=== PATIENT | female | born 1945 | race Caucasian/White ===

== ENCOUNTER 2023-08-02 13:33 | Inpatient (IN) | payer MEDICARE, SELFPAY ==
--- NOTE | 2023-08-02 14:05 | ED.SOB ---
HPI - SOB/Dyspnea General Chief Complaint: General Medical Stated Complaint: SOB Time Seen by Provider: 08/02/23 17:45 Source: patient Mode of arrival: ambulatory Limitations: no limitations History of Present Illness HPI Narrative: 78-year-old female with no known medical history presents to the emergency department for complaints of fatigue, malaise, shortness of breath and some chest discomfort worsening over the past few months, patient reports chest pain discomfort and shortness of breath worse with ambulation, she reports she walks about 5 miles a day and this has become hard due to the shortness of breath and chest discomfort on exertion. She reports it got so bad she was seen at an urgent care was given antibiotics for a few days and was given an inhaler with little to no relief. Also reports at times when she exerts herself and feels the symptoms she also has near syncopal episodes, where she becomes very lightheaded and feels like she is going to pass out however has never actually passed out. Patient reports she is worried. Denies fevers, chills, nausea, vomiting, abdominal pain, headache, vision changes. Related Data Allergies Allergy/AdvReac Type Severity Reaction Status Date / Time No Known Allergies Allergy Verified 08/02/23 14:06 Review of Systems Review of Systems: Yes all other systems are reviewed and are negative PMFSH Past Medical History Attestation statement: The following information was validated with the patient. Source: old records reviewed and nursing notes reviewed Onset Date is defined in the Problem List Problems that require an onset date and time if occurred within 24 hrs of arrival to the ED Aortic Dissection and Rupture; Neurologic impairment; Cardiopulmonary Arrest; Endotracheal Intubation; Insertion or Replacement of Mechanical Circulatory Assist Device Social History Social History Advance Directives: No Advance Directives Information Provided: No Physical Exam Vital Signs: Vital Signs: Last Vital Signs Temp 97.4 F 08/02/23 14:06 Pulse 52 08/02/23 14:06 Resp 18 08/02/23 14:06 BP 168/68 H 08/02/23 14:06 Pulse Ox 99 08/02/23 14:06 O2 Del Method Room Air 08/02/23 14:06 BMI result Body Mass Index 21.5 vss Appearance: Alert.? Oriented X3.? No acute distress.? Head: Normocephalic, atraumatic, no step-offs or deformities Eyes: Pupils equal, round and reactive to light.? ENT: Pharynx normal.? Neck: Normal inspection.? Neck supple.? CVS: Normal heart rate and rhythm.? Pulses normal.? Respiratory: No respiratory distress.? Breath sounds normal.? Abdomen: Soft and nontender.? Skin: Skin warm and dry.? Normal skin color.? Normal skin turgor.? Extremities: No lower extremity edema.? No calf ttp. 5/5 strength to bilateral upper and lower extremities Neuro: Oriented X 3.? No motor deficit.? No sensory deficit. CN 2-12 intact Course Course Course Narrative: RME: 78 yo w/ no sig PMHx presenting to the ED c/o SOB x few months w/some lightheadedness, worsening. Was previously given Abx and spray w/o relief. Hasn't seen a PCP in 10+ years. EKG, labs, viral testing, CXR ordered Full HPI, ROS and PE to be performed by primary ED provider. Reevaluation(s) Reevaluation #1: CBC unremarkable. Chemistry no acute findings, troponin 48.9, repeat 40.4, EKG nonischemic, BNP 91, D-dimer negative. Chest x-ray unremarkable. Will discuss this with Cardiology to see if patient warrants hospital admission. Time: 19:16 Reevaluation #2: Patient will get aspirin. Discussed this case with Cardiology that recommended a D-dimer which I already did and was negative. ECG nonischemic appearing, cardiology recommends another trop and patient be kept NPO after midnight she will be getting a stress test in the morning as well as hospital admission Time: 19:25 Medical Decision Making Medical Decision Making [facility] Narrative: 1800 78-year-old female presents with shortness of breath and chest discomfort on exertion for the past month worsening over the past few weeks, was recently seen at urgent care given a steroid inhaler and antibiotics with little to no relief. Physical exam benign History and physical exam concerning for viral illness versus unstable angina versus ACS versus PE. Unlikely CHF, pneumonia, acute respiratory distress, dissection Plan labs, imaging, viral test, EKG Differential Diagnosis Differential Diagnoses: The differential diagnosis associated with the presentation includes History and physical exam concerning for viral illness versus unstable angina versus ACS versus PE. Unlikely CHF, pneumonia, acute respiratory distress, dissection Admission/Observation Consideration of admission/observation: Escalation of care including admission/observation considered Lab Data MDM Lab Attestation statement: I reviewed the patient's lab results. 08/02/23 14:49 08/02/23 14:49 Labs: Lab Results 08/02/23 08/02/23 08/02/23 Range/Units 14:48 14:49 18:02 WBC 7.7 (4.8-10.8) X10*3/uL RBC 4.47 (4.20-5.50) X10*6/uL Hgb 13.6 (12.0-16.0) g/dl Hct 40.5 (37.0-47.0) % MCV 90.6 (80.0-98.0) fL MCH 30.4 (27.0-33.0) pg MCHC 33.6 (31.0-35.0) g/dl RDW 12.8 (11.0-16.0) % Plt Count 318 (160-400) X10*3/uL MPV 10.5 (9.4-12.3) fL Immature Gran % (Auto) 0.3 (0.0-0.4) % Neut % (Auto) 73.3 H (45-73) % Lymph % (Auto) 16.6 L (20-40) % [place] % (Auto) 9.0 (2-11) % Eos % (Auto) 0.5 (0-4) % Baso % (Auto) 0.3 (0-2) % Lymph # (Auto) 1.3 (1.2-4.9) X10*3/uL [place] # (Auto) 0.7 (0.1-1.2) X10*3/uL Eos # (Auto) 0.0 (0.0-0.4) X10*3/uL Baso # (Auto) 0.0 (0.0-0.2) X10*3/uL Abs Immat Gran (auto) 0.02 (0.00-0.03) X10*3/uL Absolute Neuts (auto) 5.6 (2.0-8.3) x10*3/uL Absolute Nucleated RBC 0.000 (0.0-0.012) X10*3/uL Nucleated RBC % (auto) 0.0 (0.0-0.2) /100WBC D-Dimer High Sensitivty < 150 NG/ML Sodium 141 (135-145) mmol/L Potassium 3.8 (3.3-5.1) mmol/L Chloride 106 (96-108) mmol/L Carbon Dioxide 27 (22-29) mmol/L Anion Gap 12 (12-20) BUN 13 (9-16) mg/dL Creatinine 0.80 (0.5-1.4) mg/dL Estim Creat Clear Calc 42.9 Estimated GFR > 60 Random Glucose 104 (60-115) mg/dL Calcium 9.4 (8.4-10.2) mg/dL Troponin I High Sens 48.9 H (<3.5-17.0) ng/L B-Natriuretic Peptide 91 (<100) pg/mL Influenza Type A (PCR) NEGATIVE (Negative) Influenza Type B (PCR) NEGATIVE (Negative) RSV RNA Qual (PCR) NEGATIVE (Negative) SARS-CoV-2 RNA (RT-PCR) NEGATIVE (Negative) 08/02/23 Range/Units 18:19 WBC (4.8-10.8) X10*3/uL RBC (4.20-5.50) X10*6/uL Hgb (12.0-16.0) g/dl Hct (37.0-47.0) % MCV (80.0-98.0) fL MCH (27.0-33.0) pg MCHC (31.0-35.0) g/dl RDW (11.0-16.0) % Plt Count (160-400) X10*3/uL MPV (9.4-12.3) fL Immature Gran % (Auto) (0.0-0.4) % Neut % (Auto) (45-73) % Lymph % (Auto) (20-40) % [place] % (Auto) (2-11) % Eos % (Auto) (0-4) % Baso % (Auto) (0-2) % Lymph # (Auto) (1.2-4.9) X10*3/uL [place] # (Auto) (0.1-1.2) X10*3/uL Eos # (Auto) (0.0-0.4) X10*3/uL Baso # (Auto) (0.0-0.2) X10*3/uL Abs Immat Gran (auto) (0.00-0.03) X10*3/uL Absolute Neuts (auto) (2.0-8.3) x10*3/uL Absolute Nucleated RBC (0.0-0.012) X10*3/uL Nucleated RBC % (auto) (0.0-0.2) /100WBC D-Dimer High Sensitivty NG/ML Sodium (135-145) mmol/L Potassium (3.3-5.1) mmol/L Chloride (96-108) mmol/L Carbon Dioxide (22-29) mmol/L Anion Gap (12-20) BUN (9-16) mg/dL Creatinine (0.5-1.4) mg/dL Estim Creat Clear Calc Estimated GFR Random Glucose (60-115) mg/dL Calcium (8.4-10.2) mg/dL Troponin I High Sens 40.4 H (<3.5-17.0) ng/L B-Natriuretic Peptide (<100) pg/mL Influenza Type A (PCR) (Negative) Influenza Type B (PCR) (Negative) RSV RNA Qual (PCR) (Negative) SARS-CoV-2 RNA (RT-PCR) (Negative) Independent Interpretation I performed an independent interpretation of an: EKG (Ventricular rate of 82, MD normal, QRS normal, QT/QTC normal, EKG normal sinus rhythm no ST elevations or inversions concerning for acute ischemia.) and Plain X-Ray (XR/XR chest 2V IMPRESSION: No acute cardiopulmonary disease. ) Radiology Impression Discussion of test interpretation with radiology: I have reviewed the radiologist's reading. Critical Care Time Critical Care Time Critical Care Time: Yes Total Critical Care Time: 40 Attestation: I attest to this time spent taking care of the patient, obtaining history, physical, reviewing labs, imaging, speaking to my attending, speaking to specialist. Discharge Plan Discharge Clinical Impression: Angina pectoris, unstable Patient Disposition: Admitted As Inpatient
[2023-08-02 14:06] VITALS: BP 168/68; PULSE 52; RESP 18; TEMP 36.3; O2SAT 99; BMI 21.5
[2023-08-02 15:15] LABS: Anion Gap 12 (12-20); Blood Urea Nitrogen 13 mg/dL (9-16); Calcium 9.4 mg/dL (8.4-10.2); Carbon Dioxide 27 mmol/L (22-29); Chloride 106 mmol/L (96-108); Creatinine Clr Calc Pharmacy 42.9; Estimated Glomerular Filt Rate > 60; Glucose Random 104 mg/dL (60-115); Potassium 3.8 mmol/L (3.3-5.1); Sodium 141 mmol/L (135-145)
--- NOTE | 2023-08-02 19:33 | PM.IMHP ---
History of Present Illness Date of Service: 08/02/23 Chief Complaint: Chest pain This is a 78-year-old female with no pertinent past medical history and not on prescription medications who presents to the emergency department for evaluation of chest discomfort. Patient states that about 2 months prior to presentation, she had midsternal chest discomfort while she was running. It was associated with lightheadedness and dizziness. It went away with rest. Patient states that in the 1-2 weeks she has been having intermittent chest discomfort, nonradiating that is worse with exertion not go away with rest. Also has occasional lightheadedness with it. No nausea, vomiting, sweating. No history of ACS. Quit smoking tobacco 40 years ago. Has not seen a doctor in more than 10 years and does not know if she has diabetes or hypertension. Does not take any prescription medications. Patient thought she had pneumonia and went to urgent care recently and was given Augmentin and albuterol inhaler. No history of early CAD in family. No pertinent surgical history in the past. No fever, chills, palpitations, abdominal pain, changes in urinary or bowel habits. In the emergency department, patient was found to have elevated troponin. Review of Systems Constitutional: Constitutional: Reports no additional constitutional complaints Cardiovascular: Cardiovascular: Reports chest pain, Reports chest pain at rest and Reports chest pain with activity Respiratory: Respiratory: Reports no additional respiratory complaints Gastrointestinal: Gastrointestinal: Reports no additional gastrointestinal complaints Genitourinary: Genitourinary: Reports no additional female genitourinary complaints [facility] Pertinent family history: No family history of early CAD Social History Alcohol intake: former Meds Allergies Allergy/AdvReac Type Severity Reaction Status Date / Time No Known Allergies Allergy Verified 08/02/23 14:06 Home Medications Medication Instructions Recorded Confirmed Last Taken Type albuterol sulfate 90 mcg/actuation 2 puff inhalation Q6H PRN 08/02/23 08/02/23 Unknown History aerosol inhaler Shortness Of Breath Or Wheezing amoxicillin 875 mg-potassium 1 tab PO BID 08/02/23 08/02/23 08/02/23 09:00 History clavulanate 125 mg tablet Physical Exam Vital Signs and Narrative: Vital Signs: Last Vital Signs Temp 97.4 F 08/02/23 14:06 Pulse 52 08/02/23 14:06 Resp 18 08/02/23 14:06 BP 168/68 H 08/02/23 14:06 Pulse Ox 99 08/02/23 14:06 O2 Del Method Room Air 08/02/23 14:06 BMI result Body Mass Index 21.5 Middle-aged female lying in bed in no distress Neck supple, no JVD Regular rate and rhythm, S1-S2 heard Regular breath sounds bilaterally, no wheezing or crackles appreciated Abdomen soft nontender, no guarding, no rigidity Patient is awake, alert and oriented to self, place, time and person ; no focal motor deficit Psych: Normal mood No pedal edema Results Labs 08/02/23 14:49 08/02/23 14:49 Labs: Laboratory Results - last 24 hr 08/02/23 08/02/23 08/02/23 14:48 14:49 18:02 MCV 90.6 MCH 30.4 MCHC 33.6 RDW 12.8 Plt Count 318 MPV 10.5 Immature Gran % (Auto) 0.3 Neut % (Auto) 73.3 H Lymph % (Auto) 16.6 L Hand % (Auto) 9.0 Eos % (Auto) 0.5 Baso % (Auto) 0.3 Lymph # (Auto) 1.3 Hand # (Auto) 0.7 Eos # (Auto) 0.0 Baso # (Auto) 0.0 Abs Immat Gran (auto) 0.02 Absolute Neuts (auto) 5.6 Absolute Nucleated RBC 0.000 Nucleated RBC % (auto) 0.0 D-Dimer High Sensitivty < 150 Anion Gap 12 Estim Creat Clear Calc 42.9 Estimated GFR > 60 Random Glucose 104 Calcium 9.4 B-Natriuretic Peptide 91 Influenza Type A (PCR) NEGATIVE Influenza Type B (PCR) NEGATIVE RSV RNA Qual (PCR) NEGATIVE SARS-CoV-2 RNA (RT-PCR) NEGATIVE Imaging Radiologist's Impressions: Impressions Chest X-Ray 08/02/23 14:30 IMPRESSION: No acute cardiopulmonary disease. Assessment and Plan (1) Chest pain: Status: Acute (2) Elevated troponin: Status: Acute Plan This is a 78-year-old female with no pertinent past medical history and not on prescription medications who presents to the emergency department for evaluation of chest discomfort. #. Chest discomfort with elevated troponin, concerning for ACS: Will admit patient with cardiac monitoring. Administered aspirin and initiating therapeutic Lovenox. Cardiology was consulted in the ER, who requested admission. Trend troponin. Obtaining echocardiogram. DVT prophylaxis: Lovenox Full code Admit as inpatient and will require two night minimum hospital stay for evaluation and treatment in this patient with possible ACS (as above), which is not possible in a lesser acute setting. Specialist consult pending Quality Stroke Does the patient have a stroke diagnosis?: No VTE Prior VTE?: No VTE Risk Level:: Medical - low VTE Device Contraindication: Treatment Not Indicated VTE Drug Contraindication: N/A - Med Ordered
--- NOTE | 2023-08-02 19:47 | PHA.MEDREC ---
Pharmacy Consult ? Medication Reconciliation Pharmacy has completed the medication reconciliation.
--- NOTE | 2023-08-02 22:35 | PC.NURSE ---
Lab called reporting trop 52.0. Hospitalist notified.
[2023-08-03] VITALS (9 sets, daily range): BP systolic 94–163; BP diastolic 38–97; PULSE 46–94; RESP 16–20; TEMP 36.8–37.9; O2SAT 96–98
--- NOTE | 2023-08-03 00:06 | PC.NURSE ---
Pt up and ambulated to bathroom independently. Offers no complaints or questions @ this time.
--- NOTE | 2023-08-03 07:53 | PC.NURSE ---
patient a&ox3, lungs diminished/clear, cardiac catheterization technologist intact nsr, pt denying pain/discomfort, call de los santos within reach, will continue to monitor
--- NOTE | 2023-08-03 08:47 | MHC.CM.PN ---
CM met with Patient at bedside and addressed IMM with her; original was given to Patient and a copy has been placed on the chart. 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 Home/self care is the goal and CM has initiated and will follow for dc planning. Patient's 2 Sons are the HCPs and the PCP is Dr. Enzo Aviles.
--- NOTE | 2023-08-03 10:40 | PM.CNCAR ---
History of Present Illness History of Present Illness Date of Service: 08/03/23 Requesting physician: Sarabjit Hernandez Chief complaint: Chest Pain, SOB Narrative: 78-year-old female who is here for dyspnea and lightheadedness/palpitations ongoing for 4 months. She said that she was experiencing dyspnea starting March 2023. She said when she was rushing or sprinting she would get shortness of breath and occasionally and odd sensation in the upper chest. Mostly she noticed that her breathing has changed. She also felt lightheaded and dizzy. These episodes have happened since March and she was seen in urgent care and was given antibiotics as well as inhalers. She said after taking inhalers her breathing improved significantly but then she stopped using it and had significant worsening of shortness of breath and she decided come to the emergency department. In the ER her blood pressures were elevated in 160/90. She has not seen her primary care physician for a long time has not had any blood pressure check recently. In any case her high sensitivity troponin levels were mildly abnormal at 50. She did not have any dynamic EKG changes. She was admitted for further assessment. Apparently was started on Lovenox overnight too. Review of Systems ENT: Reports system reviewed and no additional complaints, except as documented PMFSH Social History Social History Alcohol intake: former Patient Tobacco Use Status: Former Tobacco user Smoked in Last 30 Days: No Use of substances other than those prescribed or required for medical reasons: No Advance Directives: No Advance Directives Information Provided: No Nutrition Risks: No Nutritional Risk service: No Meds Allergies Allergy/AdvReac Type Severity Reaction Status Date / Time No Known Allergies Allergy Verified 08/02/23 14:06 Active Medications: Current Medications Acetaminophen (Acetaminophen 325 Mg Tablet) 650 mg PO Q6H PRN PRN Reason: Pain, Mild (Pain Scale 1-3) Amlodipine Besylate (Amlodipine Besylate 5 Mg Tablet) 5 mg PO DAILY AWILDA; Protocol Last Admin: 08/03/23 10:06 Dose: 5 mg Enoxaparin Sodium (Enoxaparin Sodium 60 Mg/0.6 Ml Syringe) 50 mg 1 mg/kg (50 mg) SUBCUT Q12H AWILDA Last Admin: 08/03/23 10:08 Dose: Not Given Melatonin (Melatonin 3 Mg Tablet) 6 mg PO BEDTIME PRN PRN Reason: Insomnia Ondansetron HCl (Ondansetron Hcl 4 Mg/2 Ml Vial) 4 mg IVPUSH Q8H PRN PRN Reason: Nausea and Vomiting Sodium Chloride (0.9 % Sodium Chloride Flush 3 Ml Syringe) 3 ml IVFLUSH QSHIFT [facility] Last Admin: 08/03/23 07:46 Dose: 3 ml Home Medications Medication Instructions Recorded Confirmed Last Taken Type albuterol sulfate 90 mcg/actuation 2 puff inhalation Q6H PRN 08/02/23 08/02/23 Unknown History aerosol inhaler Shortness Of Breath Or Wheezing amoxicillin 875 mg-potassium 1 tab PO BID 08/02/23 08/02/23 08/02/23 09:00 History clavulanate 125 mg tablet Physical Exam Vital Signs: Vital Signs: Last Vital Signs Temp 98.9 F 08/03/23 08:01 Pulse 46 L 08/03/23 08:01 Resp 16 08/03/23 08:01 BP 163/91 H 08/03/23 08:01 Pulse Ox 98 08/03/23 08:01 O2 Del Method Room Air 08/03/23 08:01 BMI result Body Mass Index 21.5 GENERAL APPEARANCE: in no acute distress, pleasant. NECK: no carotid bruit, no jugular venous distention. SKIN: no suspicious lesions, warm and dry. HEART: no murmurs, regular rate and rhythm. LUNGS: clear to auscultation bilaterally. ABDOMEN: soft, nontender. EXTREMITIES: no edema. PERIPHERAL PULSES: equal. NEUROLOGIC: No gross deficits, AAO X 3 Objective Labs and Meds 08/03/23 05:36 08/03/23 05:36 Lab results: Laboratory Results - last 24 hr 08/02/23 08/02/23 08/02/23 14:48 14:49 18:02 WBC 7.7 RBC 4.47 Hgb 13.6 Hct 40.5 MCV 90.6 MCH 30.4 MCHC 33.6 RDW 12.8 Plt Count 318 MPV 10.5 Immature Gran % (Auto) 0.3 Neut % (Auto) 73.3 H Lymph % (Auto) 16.6 L Curry % (Auto) 9.0 Eos % (Auto) 0.5 Baso % (Auto) 0.3 Lymph # (Auto) 1.3 Curry # (Auto) 0.7 Eos # (Auto) 0.0 Baso # (Auto) 0.0 Abs Immat Gran (auto) 0.02 Absolute Neuts (auto) 5.6 Absolute Nucleated RBC 0.000 Nucleated RBC % (auto) 0.0 D-Dimer High Sensitivty < 150 Sodium 141 Potassium 3.8 Chloride 106 Carbon Dioxide 27 Anion Gap 12 BUN 13 Creatinine 0.80 Estim Creat Clear Calc 42.9 Estimated GFR > 60 Random Glucose 104 Estimat Average Glucose 117 Hemoglobin A1c % 5.7 Calcium 9.4 Troponin I High Sens 48.9 H B-Natriuretic Peptide 91 Influenza Type A (PCR) NEGATIVE Influenza Type B (PCR) NEGATIVE RSV RNA Qual (PCR) NEGATIVE SARS-CoV-2 RNA (RT-PCR) NEGATIVE 08/02/23 08/02/23 08/03/23 18:19 21:47 05:36 WBC 7.0 RBC 4.06 L Hgb 12.3 Hct 35.6 L MCV 87.7 MCH 30.3 MCHC 34.6 RDW 12.8 Plt Count 291 MPV 10.8 Immature Gran % (Auto) Neut % (Auto) Lymph % (Auto) Curry % (Auto) Eos % (Auto) Baso % (Auto) Lymph # (Auto) [place] # (Auto) Eos # (Auto) Baso # (Auto) Abs Immat Gran (auto) Absolute Neuts (auto) Absolute Nucleated RBC 0.000 Nucleated RBC % (auto) 0.0 D-Dimer High Sensitivty Sodium 140 Potassium 3.6 Chloride 107 Carbon Dioxide 23 Anion Gap 14 BUN 12 Creatinine 0.71 Estim Creat Clear Calc 48.4 Estimated GFR > 60 Random Glucose 97 Estimat Average Glucose Hemoglobin A1c % Calcium 9.0 Troponin I High Sens 40.4 H 52.0 H* B-Natriuretic Peptide Influenza Type A (PCR) Influenza Type B (PCR) RSV RNA Qual (PCR) SARS-CoV-2 RNA (RT-PCR) 08/03/23 08:36 WBC RBC Hgb Hct MCV MCH MCHC RDW Plt Count MPV Immature Gran % (Auto) Neut % (Auto) Lymph % (Auto) Curry % (Auto) Eos % (Auto) Baso % (Auto) Lymph # (Auto) Curry # (Auto) Eos # (Auto) Baso # (Auto) Abs Immat Gran (auto) Absolute Neuts (auto) Absolute Nucleated RBC Nucleated RBC % (auto) D-Dimer High Sensitivty Sodium Potassium Chloride Carbon Dioxide Anion Gap BUN Creatinine Estim Creat Clear Calc Estimated GFR Random Glucose Estimat Average Glucose Hemoglobin A1c % Calcium Troponin I High Sens 55.8 H* B-Natriuretic Peptide Influenza Type A (PCR) Influenza Type B (PCR) RSV RNA Qual (PCR) SARS-CoV-2 RNA (RT-PCR) Imaging Radiologist's impression: Impressions Chest X-Ray 08/02/23 14:30 IMPRESSION: No acute cardiopulmonary disease. Assessment and Plan (1) Chest pain: Status: Acute (2) Essential hypertension: Status: Acute (3) Dyspnea on exertion: Status: Acute Plan Pleasant 78-year-old female presenting with dyspnea and off and on chest discomfort since March 2023. She is hypertensive and has not been on any medications past. We have reviewed her echocardiogram which is showing normal LV function without any wall motion abnormalities. She does have atrial septal aneurysm and potentially a PFO but it is incidental finding. She has been started on baby aspirin which should be continued. Add amlodipine 5 mg once a day. She has no wall motion abnormality on the echocardiogram and this presentation can be due to elevated blood pressures too. She has very very mildly abnormal troponin levels. She also improved with inhalers in the past and had background of smoking many years ago and had not had any lung testing recently. I think we should do an exercise stress test on her. If this is abnormal then would consider transferring her to [facility] and do coronary angiography. Thank you for allowing me to participate in the care of your patient. Please feel free to contact me if you have any questions. Procedures Date of Service Date of Service: 08/03/23
--- NOTE | 2023-08-03 12:30 | PC.NURSE ---
Resumed care of patient, she is currently off the unit getting her stress test done.
--- NOTE | 2023-08-03 14:58 | HO.PM.IMPN ---
Subjective Subjective Date of Service: 08/03/23 Interval History: seen and examined this morning seen by cardiology - had stress test plan for overnight telemetry monitoring this afternoon pt had episode of syncope after walking back from the bathroom, blood pressure dipped at time of event and then improved. re-eval after event, patient awake, alert and asymptomatic Review of Systems Review of Systems: Yes all other systems are reviewed and are negative Constitutional Constitutional: Denies fever(s) Cardiovascular Cardiovascular: Denies chest pain, Denies palpitations and Denies dyspnea Respiratory Respiratory: Denies dyspnea Endocrine Endocrine: Denies palpitations Physical Exam Vital Signs: Vital Signs: Last Vital Signs Temp 98.9 F 08/03/23 08:01 Pulse 94 08/03/23 13:51 Resp 20 08/03/23 13:51 BP 149/89 H 08/03/23 13:51 Pulse Ox 98 08/03/23 08:01 O2 Del Method Room Air 08/03/23 08:01 BMI result Body Mass Index 21.5 Const: General: cooperative, comfortable, no acute distress, alert and awake Nutritional Appearance: average body habitus Orientation/consciousness: patient oriented x3 Resp: Effort & Inspection: normal respiratory effort, able to speak in complete sentences, no respiratory distress and no use of accessory muscles Cardio: Rate: regular rate GI: Inspection: No distended Palpation (GI): Soft to palpation and nontender Neuro: General: patient oriented x3, moves all extremities and CN's II-XI intact bilaterally Objective Data Active Medications Acetaminophen (Acetaminophen 325 Mg Tablet) 650 mg PO Q6H PRN PRN Reason: Pain, Mild (Pain Scale 1-3) Amlodipine Besylate (Amlodipine Besylate 5 Mg Tablet) 5 mg PO DAILY [facility]; Protocol Last Admin: 08/03/23 10:06 Dose: 5 mg Documented By: GENARO Carvedilol (Carvedilol 3.125 Mg Tablet) 3.125 mg PO BID [facility]; Protocol Last Admin: 08/03/23 13:51 Dose: 3.125 mg Documented By: DILLON Melatonin (Melatonin 3 Mg Tablet) 6 mg PO BEDTIME PRN PRN Reason: Insomnia Ondansetron HCl (Ondansetron Hcl 4 Mg/2 Ml Vial) 4 mg IVPUSH Q8H PRN PRN Reason: Nausea and Vomiting Sodium Chloride (0.9 % Sodium Chloride Flush 3 Ml Syringe) 3 ml IVFLUSH QSHIFT [facility] Last Admin: 08/03/23 07:46 Dose: 3 ml Documented By: AUSTIN Labs 08/03/23 05:36 08/03/23 05:36 Labs: Laboratory Results - last 24 hr 08/02/23 08/02/23 08/02/23 14:48 14:49 18:02 MCV 90.6 MCH 30.4 MCHC 33.6 RDW 12.8 Plt Count 318 MPV 10.5 Immature Gran % (Auto) 0.3 Neut % (Auto) 73.3 H Lymph % (Auto) 16.6 L Ada % (Auto) 9.0 Eos % (Auto) 0.5 Baso % (Auto) 0.3 Lymph # (Auto) 1.3 Ada # (Auto) 0.7 Eos # (Auto) 0.0 Baso # (Auto) 0.0 Abs Immat Gran (auto) 0.02 Absolute Neuts (auto) 5.6 Absolute Nucleated RBC 0.000 Nucleated RBC % (auto) 0.0 D-Dimer High Sensitivty < 150 Anion Gap 12 Estim Creat Clear Calc 42.9 Estimated GFR > 60 Random Glucose 104 Estimat Average Glucose 117 Hemoglobin A1c % 5.7 Calcium 9.4 B-Natriuretic Peptide 91 Influenza Type A (PCR) NEGATIVE Influenza Type B (PCR) NEGATIVE RSV RNA Qual (PCR) NEGATIVE SARS-CoV-2 RNA (RT-PCR) NEGATIVE 08/03/23 05:36 MCV 87.7 MCH 30.3 MCHC 34.6 RDW 12.8 Plt Count 291 MPV 10.8 Immature Gran % (Auto) Neut % (Auto) Lymph % (Auto) Ada % (Auto) Eos % (Auto) Baso % (Auto) Lymph # (Auto) Ada # (Auto) Eos # (Auto) Baso # (Auto) Abs Immat Gran (auto) Absolute Neuts (auto) Absolute Nucleated RBC 0.000 Nucleated RBC % (auto) 0.0 D-Dimer High Sensitivty Anion Gap 14 Estim Creat Clear Calc 48.4 Estimated GFR > 60 Random Glucose 97 Estimat Average Glucose Hemoglobin A1c % Calcium 9.0 B-Natriuretic Peptide Influenza Type A (PCR) Influenza Type B (PCR) RSV RNA Qual (PCR) SARS-CoV-2 RNA (RT-PCR) Assessment and Plan (1) Dyspnea on exertion: Status: Acute (2) Elevated troponin: Status: Acute Plan This is a 78-year-old female with no pertinent past medical history and not on prescription medications who presents to the emergency department for evaluation of chest discomfort. Chest discomfort with elevated troponin initially started on therapeutic lovenox. seen by cardiology, underwent exercise stress test which was unremarkable, lovenox stopped echocardiogram with no WMA. trops have remained flat overnight cardiac monitoring HTN no previous diagnosis, not on meds at baseline started on norvasc and coreg will hold norvasc for now follow bp closely syncope likely vasovagal orthostatics negative. ddimer negative monitor on tele DVT prophylaxis: mechanical devices Full code attending - dr. retana requires ongoing inpatient stay for close cardiac monitoring given chest pain, elevated trops and syncopal event Quality Stroke Does the patient have a stroke diagnosis?: No VTE Prior VTE?: No VTE Risk Level:: Medical - low VTE Device Contraindication: Treatment Not Indicated VTE Drug Contraindication: N/A - Med Ordered
--- NOTE | 2023-08-03 15:02 | PC.NURSE ---
Pt walked to bathroom, upon walking back pt started to report not feeling well, got white as a ghost, and passed out cold, witnessed by staff. Pt out back in bed, BP initially 93/46, pt laying in bed currently symptoms have resolved HR 76, BP 143/76 Zuleima Hernandez at bedside currently. Diet order placed.
[2023-08-04] VITALS: TEMP 38.3
[2023-08-04 00:13] VITALS: BP 115/62; PULSE 82; RESP 18; TEMP 38.3; O2SAT 97
[2023-08-04 03:51] VITALS: BP 145/71; PULSE 78; RESP 18; TEMP 37.5; O2SAT 97
[2023-08-04 07:23] VITALS: BP 136/78; PULSE 80; RESP 18; TEMP 36.6; O2SAT 98
--- NOTE | 2023-08-04 09:23 | MHC.CM.PN ---
Addendum entered by Oksana Echevarria RN 08/04/23 13:22: PT INSISTING ON DC, DC ORDER IN AND PT WILL DC HOME SELF CARE W/FAMILY FOR TRANSPORT Original Note: EMR REVIEWED, PER CARDIOLOGY PLAN FOR EXERCISE STRESS TEST, IF NORMAL ANTIC DC HOME AND IF ABNORMAL [place] [facility] [place] WILL CONT TO FOLLOW.
[2023-08-04 10:59] VITALS: BP 128/68; PULSE 79; RESP 20; TEMP 36.3; O2SAT 98
--- NOTE | 2023-08-04 11:02 | PM.PNCARD ---
Subjective Subjective Date of Service: 08/04/23 Interval history: Seen examined at bedside. She had a vasovagal event yesterday. Clinically stable now. Blood pressure currently okay and she is on carvedilol 3.125 mg twice a day. Physical Exam Vital Signs: Last Vital Signs Temp 97.3 F 08/04/23 10:59 Pulse 79 08/04/23 10:59 Resp 20 08/04/23 10:59 BP 128/68 08/04/23 10:59 Pulse Ox 98 08/04/23 10:59 O2 Del Method Room Air 08/04/23 10:59 BMI result Body Mass Index 21.5 GENERAL APPEARANCE: in no acute distress, pleasant. NECK: no carotid bruit, no jugular venous distention. SKIN: no suspicious lesions, warm and dry. HEART: no murmurs, regular rate and rhythm. LUNGS: clear to auscultation bilaterally. ABDOMEN: soft, nontender. EXTREMITIES: no edema. PERIPHERAL PULSES: equal. NEUROLOGIC: No gross deficits, AAO X 3 Objective Labs and Meds 08/03/23 05:36 08/03/23 05:36 Progress Note: A&P Assessment and plan (1) Dyspnea on exertion: Status: Acute (2) Essential hypertension: Status: Acute (3) Frequent PVCs: Status: Acute Plan Pleasant 78 year female presenting for dyspnea on exertion. She underwent stress testing yesterday which was okay. Blood pressure was elevated and she was given amlodipine and carvedilol. Later she had a vasovagal event. Clinically stable at this point. Blood pressure improved with carvedilol 3.125 mg twice a day. We will arrange PFTs for her. She will follow-up with us in the office in 1-2 months. Thank you for allowing me to participate in the care of your patient. Please feel free to contact me if you have any questions. Time Spent With Patient Time: Total time managing care of this patient today ____ minutes. Progress Note: Quality Stroke Does the patient have a stroke diagnosis?: No Procedures Date of Service Date of Service: 08/04/23
--- NOTE | 2023-08-04 13:15 | PM.DS ---
DS: Providers Provider Date of Service: 08/04/23 Date of admission: 08/02/23 19:32 Date of discharge: 08/04/23 Primary care physician: Enzo Aviles MD Consults: 08/02/23 19:31 Consult to Cardiology Routine Consulting Provider: [facility] [place] [facility] Reason for consultation: Chest pain Has provider been notified: Yes Attending physician on discharge: Mark Downing Discharging clinician: Zuleima Hernandez DS: Diagnosis Discharge Diagnosis (1) Dyspnea on exertion: Status: Acute (2) Essential hypertension: Status: Acute (3) Frequent PVCs: Status: Acute (4) Sinusitis: Status: Acute DS: Summary Hospital Course Hospital Course: From H&P on the day of admission This is a 78-year-old female with no pertinent past medical history and not on prescription medications who presents to the emergency department for evaluation of chest discomfort. Patient states that about 2 months prior to presentation, she had midsternal chest discomfort while she was running. It was associated with lightheadedness and dizziness. It went away with rest. Patient states that in the 1-2 weeks she has been having intermittent chest discomfort, nonradiating that is worse with exertion not go away with rest. Also has occasional lightheadedness with it. No nausea, vomiting, sweating. No history of ACS. Quit smoking tobacco 40 years ago. Has not seen a doctor in more than 10 years and does not know if she has diabetes or hypertension. Does not take any prescription medications. Patient thought she had pneumonia and went to urgent care recently and was given Augmentin and albuterol inhaler. No history of early CAD in family. No pertinent surgical history in the past. No fever, chills, palpitations, abdominal pain, changes in urinary or bowel habits. In the emergency department, patient was found to have elevated troponin. Chest discomfort/BISHOP with elevated troponin initially started on therapeutic lovenox. seen by cardiology, underwent exercise stress test which was unremarkable, lovenox stopped. echocardiogram with no WMA. trops have remained flat. BNP low. CXR negative. RPP negative. overnight cardiac monitoring with PVCs. started on coreg. cardiology recommends outpatient follow up and outpatient PFTs. HTN no previous diagnosis, not on meds at baseline. was started on coreg. blood pressure under better control syncope. likely vasovagal. orthostatics negative. ddimer negative. no further events acute bacterial sinusitis. Patient has been having sinus pressure and pain, purulent nasal discharge for the last several weeks and overnight had fever of 100.9. Blood cultures were drawn, but the patient prefers to be discharged today. she understands the risks but prefers to be called if her blood cultures returned positive. will discharge with a course of augmentin. she is encouraged to schedule a follow up appointment with her PC Time Attestation Discharge coordination time: Greater than 30 minutes Quality: Safe Use of Opioids Does Pt have an Active Cancer Diagnosis on the Problem List?: No Quality: Stroke Does the patient have a stroke diagnosis?: No Physical Exam Vital Signs: Vital Signs: Last Vital Signs Temp 97.3 F 08/04/23 10:59 Pulse 79 08/04/23 10:59 Resp 20 08/04/23 10:59 BP 128/68 08/04/23 10:59 Pulse Ox 98 08/04/23 10:59 O2 Del Method Room Air 08/04/23 10:59 BMI result Body Mass Index 21.5 Const: General: cooperative, comfortable, no acute distress, alert and awake Nutritional Appearance: average body habitus Orientation/consciousness: patient oriented x3 Resp: Effort & Inspection: normal respiratory effort, able to speak in complete sentences, no respiratory distress and no use of accessory muscles Cardio: Rate: regular rate GI: Inspection: No distended Palpation (GI): Soft to palpation and nontender Neuro: General: patient oriented x3, moves all extremities and CN's II-XI intact bilaterally DS: Data Data Completed and Pending Labs on day of discharge: Laboratory Results - last 24 hr 08/04/23 10:40 Respiratory Panel Benavides See Note Adenovirus (Rapid PCR) Not Detected B.pert (TEM-PCR) Not Detected B.parapertussis DNA PCR Not Detected C. pneumoniae DNA (PCR) Not Detected Coronavirus OC43 (PCR) Not Detected Coronavirus HKU1 (PCR) Not Detected Coronavirus 229E (PCR) Not Detected Coronavirus NL63 (PCR) Not Detected Human Metapneumovir PCR Not Detected Influenza A (RT-PCR) Not Detected Influenza B (RT-PCR) Not Detected M. pneumoniae (PCR) Not Detected Parainfluenza 1 (PCR) Not Detected Parainfluenza 2 (PCR) Not Detected Parainfluenza 3 (PCR) Not Detected Parainfluenza 4 (PCR) Not Detected RSV (PCR) Not Detected Entero/Rhino (PCR) Not Detected SARS-CoV-2 RNA (RT-PCR) Not Detected Discharge Plan Discharge Anticipated Discharge Date/Time: 08/04/23 13:13 Patient Disposition: Home, Self-Care Discharge Diagnosis: sinusitis dyspnea HTN Referrals: Jason Castillo MD [Physician] - 1 Month Enzo Aviles MD [Primary Care Provider] - 1 Week Discharge Medications: New carvedilol 3.125 mg Tablet 3.125 mg PO BID 30 Days Qty: 60 1RF Protocol: Hold for SBP/HR < HOLD for SBP < : 90 HOLD for HR < : 60 Continued albuterol sulfate 90 mcg/actuation HFA aerosol inhaler 2 puff inhalation Q6H PRN (Reason: Shortness Of Breath Or Wheezing) amoxicillin-pot clavulanate 875-125 mg tablet 1 tab PO BID 7 Days Qty: 14 0RF Rx Instructions: END DATE: 08/03/23 Discharge Orders: Discharge Order (Routine); Ordered 08/04/23 Ordered By: Zuleima Hernandez Activity on Discharge: As tolerated Stand Alone Forms: Patient Portal Discharge page Care Plan Goals: see below Health Concerns: elevated blood pressure syncope chest pain shortness of breath fever sinusitis Plan of Treatment: recommend to continue taking coreg as prescribed complete course of antibiotics as prescribed, take entire course as discussed call to schedule 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
== END 2023-08-04 14:25 | disposition home or self-care (01) | DRG 153 ==
LOC: HO.ED 19:26 → HO.EDOVER 19:41 → HO.IMC 08-03 14:33
PROVIDERS: Physician Assistant; Admitting Provider Student in an Organized Health Care Education/Training Program; Emergency Provider Emergency Medicine Emergency Medical Services; PCP Internal Medicine; Visit Provider Physician Assistant Medical
DX: J01.90 Acute sinusitis, unspecified (principal); I49.3 Ventricular premature depolarization; I10 Essential (primary) hypertension; R55 Syncope and collapse; B96.89 Other specified bacterial agents as the cause of diseases classified elsewhere; Z20.822 Contact with and (suspected) exposure to COVID-19; Z87.891 Personal history of nicotine dependence; Z79.899 Other long term (current) drug therapy
CPT/HCPCS: 0241U; 36415; 71046; 80048; 83036; 83880; 84484; 85025; 85027; 85379; 87040; 87633; 93005; 93306; 93350; 99285; J1650; Q9957

== ENCOUNTER → 2023-08-02 14:09 | Outpatient (BNV) | payer MEDICARE, SELFPAY | PROVIDERS: Admitting Provider Student in an Organized Health Care Education/Training Program; Emergency Provider Emergency Medicine Emergency Medical Services; PCP Internal Medicine; Visit Provider Internal Medicine Cardiovascular Disease | DX: R06.02 Shortness of breath (principal) | CPT/HCPCS: 93010 ==

== ENCOUNTER 2023-08-02 19:32 | Outpatient (BNV) | payer MEDICARE, SELFPAY | END 2023-08-03 07:00 | PROVIDERS: Admitting Provider Student in an Organized Health Care Education/Training Program; Emergency Provider Emergency Medicine Emergency Medical Services; PCP Internal Medicine; Visit Provider Internal Medicine Cardiovascular Disease | DX: R06.02 Shortness of breath (principal) | CPT/HCPCS: 93016; 93018; 93306; 93350; 93352 ==

== ENCOUNTER → 2023-08-02 19:32 | Outpatient (BNV) | payer MEDICARE, SELFPAY | PROVIDERS: Admitting Provider Student in an Organized Health Care Education/Training Program; Emergency Provider Emergency Medicine Emergency Medical Services; PCP Internal Medicine; Visit Provider Student in an Organized Health Care Education/Training Program | DX: R06.09 Other forms of dyspnea (principal); I10 Essential (primary) hypertension; I49.3 Ventricular premature depolarization; J32.9 Chronic sinusitis, unspecified | CPT/HCPCS: 99222; 99232; 99239 ==

== ENCOUNTER → 2023-08-02 19:32 | Outpatient (BNV) | payer MEDICARE, SELFPAY | PROVIDERS: Admitting Provider Student in an Organized Health Care Education/Training Program; Emergency Provider Emergency Medicine Emergency Medical Services; PCP Internal Medicine; Visit Provider Internal Medicine Cardiovascular Disease | DX: R07.9 Chest pain, unspecified (principal); I10 Essential (primary) hypertension; R06.09 Other forms of dyspnea | CPT/HCPCS: 99223; 99232 ==

== ENCOUNTER 2025-05-17 09:09 | Outpatient (AMB) | payer MEDICARE, SELFPAY ==
--- NOTE | 2025-05-17 09:10 | AM.OFFWIN_ITS ---
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 sinus infection: sinus pressure and lightheadedness x1week Patient Tobacco Use Status: Former Tobacco user Allergies No Known Allergies Allergy (Verified 05/17/25 09:16) HPI HPI Comments History of Present Illness Details This is a 80-year-old female who presented to the walk-in clinic complaining of viral URI symptoms such as nasal/sinus congestion, rhinorrhea, sore/itchy throat, and dry cough x1 week. She states her nasal discharge/drainage is clear and denies any purulent nasal discharge or drainage. She reports postnasal drip, which is causing a sore and itchy throat. She reports a dry cough and states that she has not been coughing up any sputum. She reports some subjective low-grade fevers and chills about 1 week ago; however, has not felt fevers or chills since then. She also reports some general fatigue and malaise as well as decreased appetite. 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 She states that her symptoms have been persistent but are not worsening or improving. [facility], [facility] Social History Household Members: None Housing: House Do you presently have visiting nurse or other home services: No Alcohol intake: former Comment: Pt refusing high fall precautions Patient Tobacco Use Status: Former Tobacco user Advance Directives Date on File: 08/03/23 service: No Review of Systems Const All systems reviewed & are unremarkable except as noted in HPI and below Reports no additional complaints Eyes Reports no additional complaints ENT Reports no additional complaints Card Reports no additional complaints Resp Reports no additional complaints GI Reports no additional complaints Reports no additional complaints Musc Reports no additional complaints Skin/Breast Reports system reviewed and no additional complaints, except as documented Neuro Reports no additional complaints Psych Reports no additional complaints Endo Reports no additional complaints Benson/Lymph Reports no additional complaints Aller/Immun Reports no additional complaints Physical Exam Exam Exam: Vital signs reviewed. Constitutional: Non-toxic appearing. No acute distress. Well-developed and well-nourished. HEENT: Normocephalic and atraumatic. Tympanic membranes without erythema, edema, or bulging bilaterally. External auditory canals without erythema or edema bilaterally. Moist mucous membranes. + Post-nasal drip but no posterior pharyngeal erythema or exudates. Skin: Warm and dry. No rashes or lesions noted. Neck: Full and painless range of motion. No cervical lymphadenopathy. Cardio: Irregular and slightly bradycardic. No murmurs, gallops, or rubs. No lower extremity edema. No JVD. Pulmonary: No respiratory distress. No accessory muscle usage. Clear to auscultation bilaterally without wheezing, crackles, or rhonchi. Gastrointestinal: Soft, nontender, and nondistended in all 4 quadrants. Normoactive bowel sounds in all 4 quadrants. Musculoskeletal: Normal range of motion in joints throughout the body. No deformity or other signs of injury. Neuro: Alert and oriented x4. Cranial nerves 2-12 grossly intact. No focal deficits appreciated. Psych: Normal mood and affect. Vital Signs: Last Vital Signs Pulse 58 05/17/25 09:12 Resp 16 05/17/25 09:12 BP 142/80 H 05/17/25 09:12 Pulse Ox 93 05/17/25 09:12 Oxygen Delivery Method Room Air 05/17/25 09:12 BMI result Body Mass Index 22.3 Assessment & Plan Assessment & Plan (1) Acute upper respiratory infection, unspecified: Code(s): J06.9 - Acute upper respiratory infection, unspecified Plan: This is a 80-year-old female who presented to the walk-in clinic complaining of viral URI symptoms such as nasal/sinus congestion, rhinorrhea, sore/itchy throat, and dry cough x1 week. History and physical most consistent with acute viral upper respiratory tract infection; no double worsening, fevers/chills, or purulent nasal discharge to suggest bacterial rhinosinusitis at this time. I recommended symptomatic management including rest, increased fluids, advil/tylenol for pain/fever, nasal saline spray, humidification at nighttime, and over the counter throat lozenges/decongestants. Patient advised to follow up here or go to the emergency room for worsening/persistent symptoms. Patient verbalized understanding and is agreeable with the plan. (2) Irregular heart rate: Code(s): I49.9 - Cardiac arrhythmia, unspecified Plan: On physical examination, patient was noted to have an irregular heart rhythm. Patient states she had issues with an irregular heart rhythm in July of 2023; per chart review, she was admitted to [facility] with lightheadedness, dyspnea on exertion, and elevated troponins and she underwent stress test and echo at that time, which were negative. Patient states she does have some lightheadedness but otherwise denies any chest pain, shortness of breath, or palpitations. An EKG was obtained, which showed sinus rhythm with frequent PVCs. This was compared to EKG from 07/2023, which was normal sinus rhythm at that time. I recommended the patient proceed to the emergency room given lightheadedness with associated EKG changes and irregular rhythm; however, patient declined at this time as she is too busy. In my medical opinion, patient has the capacity to make medical decisions for herself as she is alert and oriented x4 and understands the risks. Patient signed AMA paperwork. I recommended patient proceed directly to the emergency room and have a low threshold to proceed to the emergency room if she were to develop worsening lightheadedness, chest pain, shortness breath, or palpitations. Patient verbalized understanding and she is in agreement with the plan. Medications: Discontinued carvedilol Discontinued Reason: Patient no longer taking 3.125 mg See Protocol PO BID 30 days 60 tabs 1RF amoxicillin-pot clavulanate 875-125 mg END DATE: 08/03/23 Discontinued Reason: Patient Completed Course 1 tab PO BID 7 days 14 tabs 0RF Coding Level of Care Code Est Pt Level 4 (64770) Diagnoses Acute upper respiratory infection, unspecified J06.9 Irregular heart rate I49.9
--- OUTSIDE RECORDS SUMMARY | 2025-05-17 09:11 | XMS_ITS | Data Portability ---
Author Organization SHARONDA Gabriel Venyotoño s, [address] Address [address] [place] [address] Assessment Encounter Date Assessment Date Assessment LastModified by Organization Details LastModified Time 12/22/2023 12/22/2023 Greater than 50% of the 50 minutes spent with pt was spent in counseling and coordination Not available 12/22/2023 15:40:54 Plan of Treatment Reminders Order Date Submit Date Provider Last Modified By Organization Details Last Modified Time Details Appointments None recorded. Lab CBC w/ auto diff 2023 024 [facility] [address] [place], [address], 4 06:08:17 CMP, serum or plasma [facility]23 [facility] [address] [place], [address], 4 08:37:22 borrelia burgdorferi IgG + IgM + total panel, IA, serum 2023 024 [facility] [address] [place], [address], 4 14:08:04 ESR (erythrocyt e sedimentati on rate), blood 2023 024 [facility] [address] [place], [address], 4 06:08:18 C-reactive protein, quantitativ e, serum or plasma 2023 024 [email or web address] [facility]), [address], [place], [address], 08:37:23 Referral None recorded. Procedures None recorded. Surgeries None recorded. Imaging XR, knee, 3 view - b/l knee pain for several months, worsening, no injury, suspect OA, please include b/l weight bearing AP 2023 024 [facility], All Locations, [place], [address], 10:54:35 Medication Orders None recorded. Patient TargetsNo targets recorded. Patient Instructions Encounter Date Encounter Id Patient Instructions Last Modified By Organization Details Last Modified Time 12/22/2023 [id number] lightheadedness or faintness: care instructions Not available 12/22/2023 15:27:14 You were seen fo r multiple symptoms, including swollen knees, dizziness, and night sweats. Because of this, we are looking at multiple sets of blood work. Because you did have a bullseye after a tick that wasn't treated, we will check for lyme. We are also going to look at inflammatory markers to look for other causes of these symptoms. Not available 12/22/2023 15:27:43 Reason for Referral None Reported. Results Created Date Observation Date Name Description Value Unit Range Abnormal Flag Note LastModifiedBy Organization Detail LastModifiedTime 12/22/1912/23/2023 CBC WITH DIFFE RENTI AL/PL ATELE T WBC 7.7 x10e3 /uL 3.4-10 .8 Not Available [facility] ([facility]) [address] [facility] [address], [place], [address], 12/23/2023 06:08:17 12/22/1912/23/2023 CBC WITH DIFFE RENTI AL/PL ATELE T RBC 3.91 x10e6 /uL 3.77-5 .28 Not Available [facility] ([facility]) [address] [facility] [address], [place], [address], 12/23/2023 06:08:17 12/22/1912/23/2023 CBC WITH DIFFE RENTI AL/PL ATELE T hemoglobin 11.0 g/dL 11.1-1 5.9 below low normal Not Available [facility] ([facility]) [address] [place], [address], 12/23/2023 06:08:17 12/22/1912/23/2023 CBC WITH DIFFE RENTI AL/PL ATELE T hematocrit 34.9 % 34.0-4 6.6 Not Available [facility] ([facility]) [address] [place], [address], 12/23/2023 06:08:17 12/22/1912/23/2023 CBC WITH DIFFE RENTI AL/PL ATELE T MCV 89 fL 79-97 Not Available [facility] ([facility]) [address] [place], [address], 12/23/2023 06:08:17 12/22/1912/23/2023 CBC WITH DIFFE RENTI AL/PL ATELE T MCH 28.1 pg 26.6-3 3.0 Not Available [facility] ([facility]) [address] [place], [address], 12/23/2023 06:08:17 12/22/1912/23/2023 CBC WITH DIFFE RENTI AL/PL ATELE T MCHC 31.5 g/dL 31.5-3 5.7 Not Available [facility] ([facility]) [address] [place], [address], 12/23/2023 06:08:17 12/22/1912/23/2023 CBC WITH DIFFE RENTI AL/PL ATELE T RDW 13.0 % 11.7-1 5.4 Not Available [facility] ([facility]) [address] [place], [address], 12/23/2023 06:08:17 12/22/19 24 12/23/2023 CBC WITH DIFFE RENTI AL/PL ATELE T platelets 387 x10e3 /uL 150-45 0 Not Available [facility] ([facility]) [address] [facility], [place], [address], 12/23/2023 06:08:17 12/22/19 24 12/23/2023 CBC WITH DIFFE RENTI AL/PL ATELE T neutrophils 74 % not estab. Not Available [facility] ([facility]) [address] [facility] [facility], [place], [address], 12/23/2023 06:08:17 12/22/19 24 12/23/2023 CBC WITH DIFFE RENTI AL/PL ATELE T lymphs 15 % not estab. Not Available [facility] ([facility]) [address] [facility], [place], [address], 12/23/2023 06:08:17 12/22/19 24 12/23/2023 CBC WITH DIFFE RENTI AL/PL ATELE T monocytes 10 % not estab. Not Available [facility] ([facility]) [address] [facility], [place], [address], 12/23/2023 06:08:17 12/22/19 24 12/23/2023 CBC WITH DIFFE RENTI AL/PL ATELE T eos 0 % not estab. Not Available [facility] ([facility]) [address] [facility], [place], [address], 12/23/2023 06:08:17 12/22/19 24 12/23/2023 CBC WITH DIFFE RENTI AL/PL ATELE T basos 1 % not estab. Not Available [facility] ([facility]) [address] [facility], [place], [address], 12/23/2023 06:08:17 12/22/19 24 12/23/2023 CBC WITH DIFFE RENTI AL/PL ATELE T immature cells DRIVER GUIDE Not Available [facility] ([facility]) [address] [facility], [place], [address], 12/23/2023 06:08:17 12/22/1912/23/2023 CBC WITH DIFFE RENTI AL/PL ATELE T neutrophils (absolute) 5.7 x10e3 /uL 1.4-7. 0 Not Available [facility] ([facility]) [address] [facility], [place], [address], 12/23/2023 06:08:17 12/22/19 24 12/23/2023 CBC WITH DIFFE RENTI AL/PL ATELE T lymphs (absolute) 1.1 x10e3 /uL 0.7-3. 1 Not Available [facility] ([facility]) [address] [facility], [place], [address], 12/23/2023 06:08:17 12/22/1912/23/2023 CBC WITH DIFFE RENTI AL/PL ATELE T monocytes(ab solute) 0.8 x10e3 /uL 0.1-0. 9 Not Available [facility] ([facility]) [address] [place], [address], 12/23/2023 06:08:17 12/22/1912/23/2023 CBC WITH DIFFE RENTI AL/PL ATELE T eos (absolute) 0.0 x10e3 /uL 0.0-0. 4 Not Available [facility] ([facility]) [address] [place], [address], 12/23/2023 06:08:17 12/22/1912/23/2023 CBC WITH DIFFE RENTI AL/PL ATELE T baso (absolute) 0.0 x10e3 /uL 0.0-0. 2 Not Available [facility] ([facility]) [address] [place], [address], 12/23/2023 06:08:17 05/24/12/23/2023 CBC WITH DIFFE RENTI AL/PL ATELE T immature granulocytes 0 % not estab. Not Available [facility] ([facility]) [address] [facility], [place], [address], 12/23/2023 06:08:17 12/22/1912/23/2023 CBC WITH DIFFE RENTI AL/PL ATELE T immature grans (abs) 0.0 x10e3 /uL 0.0-0. 1 Not Available [facility] ([facility]) [address] [facility], [place], [address], 12/23/2023 06:08:17 12/22/1912/23/2023 CBC WITH DIFFE RENTI AL/PL ATELE T NRBC DRIVER GUIDE Not Available [facility] ([facility]) [address] [facility], [place], [address], 12/23/2023 06:08:17 12/22/1912/23/2023 CBC WITH DIFFE RENTI AL/PL ATELE T hematology comments: DRIVER GUIDE Not Available [facility] ([facility]) [address] [facility], [place], [address], 12/23/2023 06:08:17 12/22/1912/23/2023 SEDIM ENTAT ION RATE- WESTE RGREN sedimentatio n rate-westerg leoncio 101 mm/HR 0-40 above high normal Not Available [facility] ([facility]) [address] [facility] [address], [place], [address], 12/23/2023 06:08:18 12/22/1912/23/2023 LYME DISEA SE SEROL OGY W/REF BLADE lyme total antibody hali NEGATI VE negati ve Lyme antib odies not detec nakita. Refle x testi ng is not indic ated. No labor atory evide nce of infec tion with B. burgd orfer i (Lyme disea se). Negat mickey resul ts may occur in patie nts recen tly infec nakita (less than or equal to 14 days) with B. burgd jayesher i. If recen t infec tion is suspe cted, repea t testi ng on a new sampl e colle cted in 7 to 14 days is aubrey healy Not Available [facility] ([facility]) [address] [facility] [facility], [place], [address], 12/23/2023 14:08:04 01/02/2012/29/2023 XR, knee, 3 view No observ ation record ed. [facility] [address], [place], [address], 01/02/2024 10:57:18 Result Notes None recorded. Problems No Known Problems Procedures Surgical History Date Name Laterality Status Provider Name and Address Organization Details Recorded Time 12/22/19 OC - Venipuncture Template completed Evelyn Garcia PA - [facility] 12/22/2023 15:36:35 Imaging Results None recorded. Procedure Notes None recorded. Medical Equipment None Reported. Allergies No known drug allergies Medications Not known to be on any medication Vitals Date Recorded Body height Body mass index (BMI) Body weight Body temperature Respiratory rate Heart rate Oxygen saturation Oxygen saturation in Arterial blood by Pulse oximetry Pain severity - 0-10 verbal numeric rating [Score] - Reported Systolic And Diastolic Provider Name and Address Organization Details Last Updated DateTime 152.4 cm 21.5 kg/m2 64480.1 6 g 98.7 [degF] 18 /min 71 /min 99 % 99 % 0 146/68 mm[Hg] Evelyn Garcia PA - [facility] 14:55:39 Social History Question Answer Notes LastModified by Organizat ion Details LastModified Time Tobacco Smoking Status Never Smoker Evelyn black PA - [facility] 12/22/2023 14:53:18 Have You Had Direct Contact, Or Contact During Intimacy, With Monkeypox Rash, Scabs, Or Body Fluids From A Person With Monkeypox? No Information not available 12/22/2023 What Was The Date Of Your Most Recent Tobacco Screening? 12/22/2023 Information not available 12/22/2023 Have You Recently Traveled Abroad? No Information not available 12/22/2023 Sex: Unknown Functional Status Question Answer Note LastModified by Organizat ion Details LastModified Time Do you use any illicit or recreational drugs? No Information not available 12/22/2023 Do you or have you ever used any other forms of tobacco or nicotine? No Information not available 12/22/2023 What is your level of alcohol consumption? None Information not available 12/22/2023 Mental Status None recorded. Family History Relationship Description Onset Age of this Age Resolved Age Notes LastModified by Organization Details LastModified Time Father No current problems or disability Not available 12/21 14:53:02 Mother No current problems or disability Not available 12/21 14:53:02 Medical History No medical history recorded. Gynecological HistoryNo gynecological history recorded. Obstetrics History GPAL:G 0 P 0 0 0 0 Past Encounters Encounter ID Performer Location Encounter Start Date Encounter Closed Date Diagnosis/Indication Diagnosis SNOMED-CT Code Diagnosis ICD10 Code Diagnosis IMO Codes Diagnosis Note [id number] [address] [facility] [address] [place] [address] 07/11/2019 12:26:13 07/11/2019 13:42:07 [id number] SHARONDA DALY [address] [place] [address] 12/22/2023 14:45:57 12/22/2023 15:35:37 Pain of bilateral knee joints [id number] 87586 M25.561 M25.562 One of your concerns today is bilateral knee pain and swelling. This is likely due to some arthritis in your knees. In order to rule out other knee issues, I have ordered an x-rayPleas e take the x-ray order to any [facility] location to get imaging.We should get the results in 24-48 hrs. If you do not hear from us in that time, please give us a call. Home Care for Knee Pain: REST: Take a break from any activity that may cause pain. ICE: apply ice or a cold pack on your knee for 10 to 20 minutes at a time. Put a thin cloth between the ice and your skin. ELEVATE: Prop up a sore knee on a pillow when you ice it or anytime you sit or lie down for the next 3 days. Try to keep it above the level of your heart. This will help reduce swelling. If your knee is not swollen, you can put moist heat, a heating pad, or a warm cloth on your knee. COMPRESS: Use an elastic bandage, sleeve, or other type of support for your knee, wear it as directed. Bear weight as tolerated. Use a cane, crutches, or a walker if needed. If you can do mild exercise, slowly increase your activity. Reach and stay at a healthy weight. Go to the ER immediatel y if:You have symptoms of a blood clot in your lung (called a pulmonary embolism). These may include: Sudden chest pain. Trouble breathing. Coughing up blood. You have severe or increasing pain. Your leg or foot turns cold or changes color. You cannot stand or put weight on your knee. Your knee looks twisted or bent out of shape. You cannot move your knee. You have signs of infection, such as: Increased pain, swelling, warmth, or redness. Red streaks leading from the knee. Pus draining from a place on your knee. A fever. You have signs of a blood clot in your leg (called a deep vein thrombosis ), such as: Pain in your calf, back of the knee, thigh, or groin. Redness and swelling in your leg or groin. Night sweats 15852061 R6 1 We are doing labs for lyme today because you have had a bulls-eye rash after removing a tick and were not treated with antibiotic s Lightheadedness 09440102 8 R42 Make sure you are staying WELL HYDRATED!! Drink AT LEAST 50oz of water a day! Dizziness and/or Near Syncope- The following diagnoses were considered but were determined based on the history, physical exam and assessment to be unlikely, including but not limited to: brain or spinal tumor, intracereb ral bleed, subarachno id hemorrhage , subdural hematoma, brain abscess, meningitis , epidural abscess, epidural hematoma, skull fracture, encephalit is, retrophary ngeal abscess, spinal abscess, shingles, trigeminal neuralgia, posterior circulatio n, carotid or other artery or vein occlusion with or without stroke, intracereb ral aneurysm, arrhythmia , , coronary artery occlusion, Lyme disease and cellulitis . However, the patient was advised that if their symptoms worsened at any time or persisted for more than 12-24 hours that they should go to the emergency department for further evaluation and treatment or risk serious and disability . Shared decision making was done to determine the final urgent care discharge dispositio n. Swelling o f knee joint [id number] M25.469 We are checking for inflammato ry causes of your knee pain and swelling as well as looking at osteoarthr itis Health Concerns Section Related Observation LastModified by Organization Detai ls LastModified Time None Recorded Concern Status LastModified by Organization Details LastModified Time None Recorded Advance Directives Directive None Recorded Payers Insurance Date Sequence Insurance Name Policy Number Policy Balbuena Covered Member ID Balbuena Member ID Guarantor Name 12/26/2023 1 [place]ICARE [place]: [employer] Patricia Guadalupe [id number] Patricia Guadalupe 12/26/2023 1 [facility] - MEDICARE PREFERRED (MEDICARE REPLACEMENT HMO) [address] Patricia Guadalupe [id number] Patricia Guadalupe Notes Date Note Type Note Provider Name and Address Organization Details Recorded Time 12/22/2023 text/html 78 y/o female here with mutliple complaints that have gone on for the past 7 months.She has been having lightheadedness and dizziness that she thinks might be related to not drinking enough water, which she knows she doesn't. She didn't connect the two initially, but has been told that's likely a factor She was seen by her PCP, then was in the hospital, where she was diagnosed with a virus, she was inpt for several days, had lots of labs, but doesn't remember what, and was never told there was an issue with any of those labs.She has had sciatica and recently started PT for that, and has been having knee pain and swelling. She remembered that 11 yrs ago or so, she removed a tick and ended up with a bullseye rash, but was never treated for that. She has had on and off fevers and night sweats She has had lung and cardiac testing, and is frustrated no one has any answers for her. SHARONDA Valdovinos [address], [place], [place], [address], PA - [facility] 12/22/2023 15:41:01 OBGyn Episode No OBEpisode recorded.
--- OUTSIDE RECORDS SUMMARY | 2025-05-17 09:11 | XMS_ITS | Clinical Summary ---
Author Organization [facility] Address [address] [facility] [address] [place], [place] [id number] Phone Care Team Providers Care Teacher Education Director Name Role Phone Enzo Aviles MD Primary Care Provider [phone] Allergies No known active allergies Medications albuterol 90 mcg/actuation inhaler Inhale 2 puffs into the lungs every 6 (six) hours as needed for shortness of breath/dyspnea . 6.7 g Active Active Problems No known active problems Social History Tobacco Use Types Packs/Day Years Used Date Smoking Tobacco: Never Smokeless Tobacco: Never Tobacco Cessation:Counseling Given: Not Answered Alcohol Use Standard Drinks/Week Comments Never 0 (1 standard drink = 0.6 oz pur e alcohol) Education Answer Date Recorded Are you interested in more education? Not on davina e 11/25/2022 Are you concerned about learning? Not on file 11/25/2022 No 11/25/2022 No 11/25/2022 Digital Access Answer Date Recorded No 12/24/2022 No 12/24/2022 Reliable internet access at home? Not on file 12/24/2022 Device with a working camera? Not on file Comments Unknown Sex and Gender Information Value Date Recorded Sex Assigned at Not on file Legal Sex Female 10:37 PM EDT Gender Identity Not on file Sexual Orientation Not on file Last Filed Vital Signs Vital Sign Reading Time Taken Comments Blood Pressure 152/86 07/25/2023 1:46 PM EST Pulse 67 07/25/2023 1:46 PM EST Temperature 36.7 C (98 F) 01/10/2013 2:05 AM EDT Respiratory Rate 16 07/25/2023 1:46 PM EST Oxygen Saturation 99% 07/25/2023 1:46 PM EST Inhaled Oxygen Concentration - - Weight 49.9 kg (110 lb) 07/25/2023 1:46 PM EST Height 152.4 cm (5') 07/25/2023 1:46 PM EST Body Mass Index 21.48 07/25/2023 1:46 PM EST Plan of Treatment Health Maintenance Due Date Last Done Comments Adult Td,Tdap Booster 1945 LIPID PANEL 1945 DEPRESSION SCREENING 1959 HEPATITIS C SCREENING 1965 PNEUMOCOCCAL VACCINES (50+ y ears) (1 of 1 - PCV) 1997 ZOSTER VACCINES (1 of 2) 1997 OSTEOPOROSIS SCREENING INITI AL (ONE-TIME) 2012 RSV VACCINE (1 - 1-dose 75+ series) 2022 INFLUENZA VACCINE (#1) 2025 COVID-19 VACCINE ( - 2024-2 6 season) 2025 SMOKING STATUS SCREENING (On ce After 26 Yrs) Completed 07/25/2023 HEPATITIS A VACCINES Aged Out No long er eligible based on patient's age to complete this topic HIB VACCINES Aged Out No longer eligi ble based on patient's age to complete this topic MENINGOCOCCAL VACCINES (ACWY) Aged Out No longer eligible based on patient's age to complete this topic MENINGOCOCCAL VACCINES (B) Aged Out N o longer eligible based on patient's age to complete this topic Medical Devices Not on file Insurance [employer]PL[employer] [employer]REF[employer]MO REPLACEMENT [employer] RE[employer] RE[employer]ACEMENT Care Teams Teacher Education Director Relationship Specialty Start Date End Date Enzo Aviles MD [address] [place] [id number] PCP - General Internal Medicine 07/25/23 Additional Source Comments The information contained in this document represents components of the legal health record. It is not the complete legal health record.[facility]
[2025-05-17 09:12] VITALS: BP 142/80; PULSE 58; RESP 16; O2SAT 93; BMI 22.3
== END 2025-05-17 10:09 | disposition home or self-care (01) ==
PROVIDERS: PCP Internal Medicine; Visit Provider Physician Assistant Medical
DX: J06.9 Acute upper respiratory infection, unspecified (principal); I49.9 Cardiac arrhythmia, unspecified

== ENCOUNTER → 2025-05-17 09:09 | Outpatient (BNVA) | payer MEDICARE, SELFPAY | PROVIDERS: PCP Internal Medicine | DX: R53.83 Other fatigue (principal); R53.81 Other malaise; J06.9 Acute upper respiratory infection, unspecified; I49.9 Cardiac arrhythmia, unspecified | CPT/HCPCS: 93005; 99212 ==